=== PATIENT | male | born 1970 | race Caucasian/White ===

== ENCOUNTER 2022-07-01 08:44 | Emergency (ER) | payer OTHER, SELFPAY ==
[2022-07-01 08:51] VITALS: BP 125/75; PULSE 69; RESP 14; TEMP 36.6; O2SAT 98
--- NOTE | 2022-07-01 09:09 | ED.URI ---
HPI - URI/Sore Throat General Chief Complaint: Upper Respiratory Infection Stated Complaint: Sore Throat Time Seen by Provider: 07/01/22 09:09 History of Present Illness HPI Narrative: Patient presents with cough nasal congestion runny nose and sore throat for the past 3 days. No shortness of breath no chest pain no trouble swallowing no drooling. Related Data Home Medications Medication Instructions Recorded Confirmed hydrocodone 10 mg-acetaminophen 1 tablet PO Q6-8H PRN Pain 07/01/22 07/01/22 325 mg tablet pregabalin 100 mg capsule 100 mg PO QHS 07/01/22 07/01/22 Allergies Allergy/AdvReac Type Severity Reaction Status Date / Time meperidine Allergy Unknown Itching Verified 07/01/22 09:08 Review of Systems Review of Systems: CONSTITUTIONAL: Denies chills, or sweats. Reports fever and generalized body aches EYES: Denies visual changes, redness, or discharge. ENT: Denies otalgia. Reports nasal congestion runny nose and sore throat CARDIOVASCULAR: Denies chest pain, palpitations, or edema. RESPIRATORY: Denies dyspnea. Reports occasional cough GASTROINTESTINAL: Denies abdominal pain, nausea, vomiting, or diarrhea. GENITOURINARY: Denies dysuria or hematuria. SKIN: Denies rash or itching. MUSCULOSKELETAL: Denies back pain, joint pain, or myalgia. Reports generalized body aches NEUROLOGIC: Denies headache, numbness, or weakness. PSYCHIATRIC: Denies anxiety or depression. PMFSH Comments At time of signature, agree with nursing past medical, surgical, social and family history. There is no relevant family history pertinent to the presenting complaint Exam Narrative: The patient is a well-developed, well-nourished in no acute distress. SKIN: Skin is warm and dry without erythema, swelling or exudate. There is good turgor. No tenting. HEAD: Atraumatic. Normocephalic. No temporal or scalp tenderness. EYES: Moist and bright. Sclera and conjunctivae normal. No discharge. PERRLA. Extraocular motions intact. Gross visual acuity intact. EARS: Pinna is normal shape and contour. Clear external auditory canals. TM pearly cota with good cone of light, no erythema or suppuration. Bilateral cerumen noted no gross hearing deficit. NOSE: pink, moist mucosa with good air movement. Clear rhinorrhea without nasal flaring. Septum midline. Mouth: moist mucous membranes. THROAT; mild erythema noted to posterior oropharynx with moderate postnasal drainage. Without exudate or ulceration.. Uvula midline. Normal movement of soft palate. NECK: Supple and nontender with full range of motion without discomfort. No meningeal signs. LUNGS: Equal and bilateral breath sounds without wheezes, rales or rhonchi. CHEST: The chest wall is without retractions or use of accessory muscles. HEART: Has a regular rate and rhythm without murmur, gallops, click or rub. ABDOMEN: Soft, nontender with positive active bowel sounds. No rebound tenderness. EXTREMITIES: Without cyanosis, clubbing or edema. Equal 2+ distal pulses and 2 second capillary refill noted. NEUROLOGIC: alert, active, . The patient moves all extremities with normal muscle strength. Normal muscle tone is noted. Normal coordination is noted. NO focal neurological findings noted. Course Course Level of Care: Express Care Visit Vital Signs Vital signs: Vital Signs Temperature 36.6 C 07/01/22 08:51 Pulse Rate 69 07/01/22 08:51 Respiratory Rate 14 07/01/22 08:51 Blood Pressure 125/75 07/01/22 08:51 Pulse Oximetry 98 07/01/22 08:51 Oxygen Delivery Room Air 07/01/22 08:51 Temperature 36.6 C 07/01/22 08:51 Pulse Rate 69 07/01/22 08:51 Respiratory Rate 14 07/01/22 08:51 Blood Pressure 125/75 07/01/22 08:51 Pulse Oximetry 98 07/01/22 08:51 Oxygen Delivery Room Air 07/01/22 08:51 MDM - URI/Sore Throat Differential Diagnosis Differential diagnosis: Likely upper respiratory infection, croup, otitis media, sinusitis, viral infection, bronchitis, influenza a
== END 2022-07-01 09:20 | disposition home or self-care (01) ==
PROVIDERS: Emergency Provider Nurse Practitioner Family
DX: J06.9 Acute upper respiratory infection, unspecified (principal); J02.9 Acute pharyngitis, unspecified; B34.9 Viral infection, unspecified
CPT/HCPCS: 87081; 87880; 99213; G0463

== ENCOUNTER 2024-08-14 05:23 | Outpatient (CLI) | payer OTHER, SELFPAY ==
--- NOTE | 2024-08-13 18:12 | PC.NURSE ---
Pre Radiology instructions Report to the outpatient [facility] on date _[id number]____ at time _10:30am for procedure Time: __12:00pm__ YOU MAY BE MONITORED AT HOSPITAL FOR UP TO 4 HOURS AFTER YOUR PROCEDURE. A visitor will be allowed to accompany the patient into the hospital. You and your visitor will be asked to self-screen and do not enter if you have any COVID symptoms. A mask is OPTIONAL within the hospital. Patients are to have no food or drink 6 hours prior to procedure time Driving will be restricted after the procedure, you must have a person to drive you home. Labs will be drawn in preop area and once reviewed, you will be taken to radiology area for procedure. When the procedure is completed, you will be taken to outpatient where you will be monitored for several hours. You may have one visitor in this area. Medications to discontinue per physician: N/A_ Please leave all valuables, including medications, at home the day of procedure. The hospital will not accept responsibility for valuables. Wear comfortable, loose fitting clothing.? Follow any additional instructions given to you from ordering provider. Telephone instructions given to __Kenrick (patient) and asked if any additional questions and then verbalized understanding. Patient advised to call scheduling provider office or registration scheduling [phone] if any additional questions.
[2024-08-13 18:20] VITALS: BMI 35.3
--- NOTE | ~2024-08-14 | CT_ITS ---
EXAMINATION: CT thoracic lumbar w con DATE: 08/14/2024 13:48 INDICATION: Syringomyelia. TECHNIQUE: 1. Informed consent was obtained from the patient. Risks and benefits including bleeding, infection, spinal headache, allergic reaction and nerve root injury were discussed with the patient. The patie nt agreed to proceed. Time out procedure was performed. An entry site was chosen at the L4-L5 level . A right paracentral approach was used. Standard sterile prep was done with Betadine. Entry site was infiltrated with 5 cc 1% lidocaine. A 5 22G spinal needle was then inserted into the spinal can al. Intrathecal position was confirmed with spontaneous reflux of clear CSF. 8 mL Omnipaque 300 were then injected into the thecal sac with intrathecal administration confirmed with intermittent fluoros copy. Attempt was made to advance the contrast into the thoracic spine by tilting the table with the head down. This was performed this patient prone, the right lateral decubitus position and on the pat ient's back. There appear to be a complete myelographic block at the level of L3 with contrast unable to be advanced beyond this level. Frontal and lateral fluoroscopic images of the lumbar spine were then acquired. The patient was then transferred to CT scan for spiral CT of the thoracic and lumbar spine was performed with intrathecal contrast but without intravenous contrast. Automated exposure control and iterative reconstruction te chnique were employed. The dose-length product was 2304.79 mGy-cm. Following this patient was transfe rred to the recovery area for 2 hours of observation. There are no immediate complications. Coronal and sagittal reformatted images of the thoracic and lumbar spine CT were also reviewed. FINDINGS: Thoracic spine: Alignment is normal. Vertebral body heights are normal. There are lucent hemangiomas with typical thi ckened vertical trabecula at the T1 and T10 vertebral bodies. Minimal to mild disc height loss throug hout the thoracic spine with small anterior endplate osteophytes at a few levels the mid to lower tho racic spine. There is some ossification of the ligamentum flavum contributing to mild neural central canal stenosis at T2-T3, T3-T4 and T5-T6. Multilevel mild facet osteoarthritis throughout the thoraci c spine with moderate facet osteoarthritis bilaterally at C7-T1. There is minimal neural foraminal st enosis at a few thoracic levels. Distal tip of a an intrathecal pain pump located at the right-sided thecal sac at the level of T10. No evident intrathecal contrast the thoracic spine. Lumbar spine: Bone alignment is normal. Lumbar vertebral body heights are normal. Mild disc height loss at L3-L4. R emaining disc heights are normal. Partial L3 laminectomy with postoperative scarring in the overlying subcutaneous tissues. The intrathecal pain pump catheter extends into the lumbar spine 5 left parace ntral approach at the level of L2-L3. The cephalad most extent of the injected intrathecal contrast s een at the left side of the thecal sac at the level of L2-L3. Moderate bilateral sacroiliac osteoarth ritis. The following disc levels are specifically discussed: T12-L1: There is mild bilateral facet joint osteoarthritis. There is mild left neural foraminal steno sis. There is no central canal stenosis. L1-L2: There is mild bilateral facet joint osteoarthritis. There is no neural foraminal stenosis. The re is no central canal stenosis. L2-L3: Disc is mildly bulging. There is mild/moderate bilateral facet joint osteoarthritis. There is also some ossification along the mildly hypertrophied bilateral ligamentum flavum. There is minimal b ilateral neural foraminal stenosis. There is stenosis of the osseous central canal. There is however only a trace amount of intrathecal contrast outlining. The nerve roots at the left side of the centra l canal. L3-L4: Disc is mildly bulging. There is moderate bilateral facet joint osteoarthritis. There is mild bilateral neural foraminal stenosis. The intrathecal contrast surrounds the thickened appearing parav ertebral the cauda equina at the level of L4 where there is mild central canal stenosis. Intrathecal contrast appears displaced from the left side of the central canal beginning at the level of the disc space with relatively smooth margins to the contrast. This suggests either a disc bulge, mass or cys tic lesion within the thecal sac at this level results in moderate central canal stenosis at the infe rior aspect of L3 becoming progressively more severe more cephalad complete sonographic block of the contrast occurring at the level of L2-L3. L4-L5: The disc does not extend beyond the endplate margin. There is moderate bilateral facet joint o steoarthritis. There is mild bilateral neural foraminal stenosis. There is no central canal stenosis. The nerve roots at the level of L4. Deviated to the left posterior side of the thecal sac which sugg ests arachnoiditis. L5-S1: Disc is mildly bulging. There is moderate bilateral facet joint osteoarthritis. There is moder ate bilateral neural foraminal stenosis. There is no central canal stenosis. IMPRESSION: 1. Complete myelographic block of contrast at the level of L3 which appears to result from prominent disc extrusion, mass or cystic lesion centered in the right side of the thecal sac beginning at the l evel of L3-L4. The thecal sac in the more cephalad thoracic and upper lumbar spine remain unopacified with contrast. 2. Mild thoracic spondylosis. 3. Mild lumbar spondylosis with change of partial L3 laminectomy. Reviewed, dictated and finalized at location A. IMPRESSION: 1. Complete myelographic block of contrast at the level of L3 which appears to result from prominent disc extrusion, mass or cystic lesion centered in the rig ht side of the thecal sac beginning at the level of L3-L4. The thecal sac in th e more cephalad thoracic and upper lumbar spine remain unopacified with contras t. 2. Mild thoracic spondylosis. 3. Mild lumbar spondylosis with change of partial L3 laminectomy.
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
--- OUTSIDE RECORDS SUMMARY | 2024-08-14 05:28 | XMS_ITS ---
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 This section includes the names of all active insurance providers for the patient. Insurance Provider Type of Coverage Plan Name Start of Policy Coverage End of Policy Coverage Group Number Member ID Insurance Provider's Telephone Number Policy Calix's Name Patient's Relationship to Policy Calix [employer] TRICA RE DODA WNR Mar 31, 2021 DODA [id number] Rian SOSA PATIENT [facility] 2024 SELEC T RETIR ED Mar 19, 2024 SELECT RETIRED [id number] [phone] Rian SOSA PATIENT FOR LIFE TRICA RE FOR LIFE Apr 26, 2009 SPONSOR [id number] Rian SOSA PATIENT Selected Encounter This section includes the information on record at [place] for the Encounter. Date/Time Encounter Type Encounter Description Reason Provider Source Jul 10, 2024 11:00 AM MED NUTRITION INDIV SUBSEQ SPINAL CORD INJURY ICD-10-CM G82.22 Paraplegia, incomplete WEATHERHOLT,CA RRIE A IHE Encounter Template Text not used by [place] Assessments - Encounter Diagnoses This section includes the primary and secondary diagnoses documented for the Encounter. Date/Time Primary/Secondary Diagnosis Diagnosis Name Provider Source Jul 10, 2024 03:38 PM PRIMARY Paraplegia, incomplete WEATHERHOLT,CA RRIE A [facility] Jul 10, 2024 03:38 PM SECONDARY Dietary counseling and surveillance [facility] ENEDELIA A [facility] Plan of Treatment: Future Appointments (+ 6 months) and Future Tests (+/- 45 days) The Plan of Treatment section includes future care activities for the patient from all [place] treatmentfacilities. This section includes future appointments and future orders which are active, pending or scheduled. Future Appointments This section includes appointments that were scheduled to occur 6 months from the date of the Encounter, up to a maximum of 20 appointments. The data comes from all [place] treatment facilities. Appointment Date/Time Appointment Type Appointme nt Facility Name Jul 16, 2024 02:30 PM AMBULATORY - SURGERY [facility] July 25, 2024 10:30 AM AMBULATORY - NONE [facility] July 25, 2024 12:00 PM AMBULATORY - NONE [facility] July 29, 2024 03:30 PM AMBULATORY - MEDICINE [facility] August 14, 2024 10:30 AM AMBULATORY - NONE [facility] August 15, 2024 01:30 PM AMBULATORY - MEDICINE [facility] Aug 22, 2024 01:20 PM AMBULATORY - SURGERY [facility] Aug 22, 2024 02:30 PM AMBULATORY - MEDICINE [facility] Aug 27, 2024 12:00 PM AMBULATORY - NONE [facility] Sep 11, 2024 08:00 AM AMBULATORY - SURGERY [facility] Sep 23, 2024 07:30 AM AMBULATORY - REHAB MEDICIN [facility] Sep 25, 2024 12:00 PM AMBULATORY - NONE [facility] Oct 10, 2024 10:00 [facility] Active, Pending, and Scheduled Orders This section includes a listing of several types of active, pending, and scheduled orders, including clinic medications orders, diagnostic test orders, procedure orders and consult orders; where the start date of the order is 45 days before the date of the Encounter or 45 days after the date of theEncounter. The data comes from all [facility] facilities. Test Date/Time Test Type Test Details Facility Name Jul 10, 2024 12:00 AM Laboratory - Chemi stry Order OCCULT BLOOD FIT X1 SCREEN STOOL FECES [facility] Jul 10, 2024 12:00 AM Laboratory - Chemi stry Order TESTOSTERONE, FREE PANEL RED/NO-GEL SERUM [facility] Jul 10, 2024 12:00 AM Laboratory - Chemi stry Order HEPATITIS A IGG AB (STL) GOLD/RED SST SERUM [facility] Jul 10, 2024 12:00 AM Laboratory - Chemi stry Order MICRAL/CREAT PROFILE (STL) URINE YELLOW [facility] Jul 10, 2024 03:58 PM Consult Order EYE CLINIC OUTPT TERI Cons Gas Leak Inspector's [facility] Jul 10, 2024 03:58 PM Consult Order DERM OUTPA TIENT STL Cons Gas Leak Inspectors [facility] Jul 11, 2024 02:36 PM Consult Order DIABETES E DUCATION OUTPATIENT STL Cons Gas Leak Inspector's [facility] Jul 15, 2024 03:20 PM Consult Order OTHER U ROLOGY OUTPT STL Cons Gas Leak Inspectors [facility] Jul 16, 2024 08:59 AM Consult Order COMM[facility]ITY C[facility]CT [facility] Lab Results: +/- 30 days of the encounter This section includes the Chemistry and Hematology Lab Results on record with [facility] for the [facility]. Radiology Reports and Pathology Reports are provided separately, in subsequent sections. Lab Results This section contains the Chemistry/Hematology Results that were resulted 30 days before or 30 daysafter the date of the Encounter. Date/Time Source Result Type Result - Unit Interpretation Reference Range Specimen Type Comment Jul 10, 2024 09:55 AM [facility] HGA1C BLOOD Specimen Type: BLOOD No comment entered. Ordering Provider: SAGAR DOMINGUEZ Report Released Date/Time: May 27, 2024 10:27 AM Reporting Lab: [facility] [facility] [address] Performing Lab: [facility] [facility] [address] HGA1C 8.2 H 4.0-6.0 Jul 10, 2024 09:55 AM [facility] LIPID PANEL (STL) PLASMA Specimen Type: PLASM A Comment: No hemolysis noted. Ordering Provider: SAGAR DOMINGUEZ Report Released Date/Time: May 27, 2024 10:27 AM Reporting Lab: [facility] [facility] [address] Performing Lab: [facility] [facility] [address] CHOLESTEROL 168 mg/dL 0-200 TRIGLYCERIDE 104 mg/dL 0-150 CALCULATED LDL 115 mg/dL See Interp HDL(New) 32 mg/dL L > 40 Jul 10, 2024 09:55 AM [facility] B12 SERUM Specimen Type: SERUM No comment entered. Ordering Provider: SAGAR DOMINGUEZ Report Released Date/Time: May 27, 2024 10:27 AM Reporting Lab: [facility] [address] Performing Lab: [facility] [facility] [address] B12 336 pg/mL 213-816 Jul 10, 2024 09:55 AM [facility] FOLATE (STL-MA) SERUM Specimen Type: SERUM No comment entered. Ordering Provider: SAGAR DOMINGUEZ Report Released Date/Time: May 27, 2024 10:27 AM Reporting Lab: [facility] [facility] [address] Performing Lab: [facility] [facility] [address] FOLATE (STL-MA) 8.4 ng/mL 7-20 Jul 10, 2024 09:55 AM [facility] COMPREHENSIVE METABOLIC PANEL PLASMA Specimen Type: PLASMA Comment: No hemolysis noted. Ordering Provider: SAGAR DOMINGUEZ Report Released Date/Time: May 27, 2024 10:27 AM Reporting Lab: [facility] [address] Performing Lab: [facility] [facility] [address] CREATININE 0.61 mg/dL L 0.70-1.30 UREA NITROGEN 13.2 mg/dL 9.0-25.0 GLUCOSE 178 mg/dL H 72-99 SODIUM 137 meq/L 136-145 POTASSIUM 4.0 meq/L 3.5-5.0 CHLORIDE 105 meq/L 98-107 CARBON DIOXIDE 23 meq/L 22-31 CALCIUM 9.1 mg/dL 8.4-10.4 PROTEIN 7.3 g/dL 6.0-8.6 ALBUMIN 4.0 g/dL 3.4-5.0 TOTAL BILIRUBIN 0.7 mg/dL 0.2-1.2 ALKALINE PHOSPHATASE 93 U/L 40-150 AST/SGOT 41 U/L H 5-34 ALT/SGPT 72 U/L H 8-40 EGFR (CKD-EPI 2020) 114.85 >60 Jul 10, 2024 09:55 AM [facility] CBC BLOOD Specimen Type: BLOOD No comment entered. Ordering Provider: SAGAR DOMINGUEZ Report Released Date/Time: May 27, 2024 10:27 AM Reporting Lab: [facility] [address] Performing Lab: [facility] [facility] [address] WBC 6.0 10*3/uL 3.6-11.2 RBC 4.74 10*6/uL 4.10-5.70 HGB 13.8 g/dL 13.1-16.8 HCT 40.9 38.2-48.4 MCV 86.3 fL 80.0-100.0 MCH 29.1 pg 27.0-34.0 MCHC 33.7 g/dL 33.0-36.0 PLT 221 10*3/uL 150-400 MPV 11.0 fL 7.5-11.2 RDW 12.6 11.8-15.1 LYMPHOCYTES, AUTO % 26 MONOCYTES, AUTO % 7 NEUTROPHILS, AUTO % 64 EOSINOPHILS, AUTO % 2 BASOPHILS, AUTO % 1 LYMPHOCYTES, ABSOLUTE 1.56 10*3/uL 0.77- 4.50 MONOCYTES, ABSOLUTE 0.42 10*3/uL 0.19-0. 80 NEUTROPHILS, ABSOLUTE 3.88 10*3/uL 2.10- 8.00 EOSINOPHILS, ABSOLUTE 0.11 10*3/uL 0.00- 0.60 BASOPHILS, ABSOLUTE 0.04 10*3/uL 0.00-0. 20 Jul 10, 2024 09:55 AM [facility] VITAMIN D, 25-HYDROXY SERUM Specimen Type: SE RUM No comment entered. Ordering Provider: SAGAR DOMINGUEZ Report Released Date/Time: May 27, 2024 10:27 AM Reporting Lab: [facility] [address] Performing Lab: [facility] [facility] [address] VITAMIN D, 25-HYDROXY 6.9 ng/mL L 30-96 Jul 10, 2024 09:55 AM [facility] TSH W/ REFLEX FT4 (STL) PLASMA Specimen Type: PLASMA No comment entered. Ordering Provider: SAGAR DOMINGUEZ Report Released Date/Time: May 27, 2024 10:27 AM Reporting Lab: [facility] [address] Performing Lab: [facility] [facility] [address] TSH 0.908 u[IU]/mL 0.470-5.000 Jul 10, 2024 09:55 AM [facility] PREALBUMIN SERUM Specimen Type: SERUM No comment entered. Ordering Provider: SAGAR DOMINGUEZ Report Released Date/Time: May 27, 2024 10:27 AM Reporting Lab: [address] [address] Performing Lab: [address] [address] PREALBUMIN 18 mg/dL 16-42 Jul 10, 2024 09:55 AM [facility] HEP B CORE AB TOTAL. (STL) SERUM Specimen Typ e: SERUM No comment entered. Ordering Provider: SAGAR DOMINGUEZ Report Released Date/Time: Jul 08, 2024 10:10 AM Reporting Lab: [address] [address] Performing Lab: [address] [address] HEP B CORE AB TOTAL. (L) Nonreactive N onreactive Jul 10, 2024 09:55 AM [facility] HEP HB S Ag (AUSRI[place]) (STL) SERUM Specimen Typ e: SERUM No comment entered. Ordering Provider: SAGAR DOMINGUEZ Report Released Date/Time: Jul 08, 2024 10:10 AM Reporting Lab: [address] [address] Performing Lab: [address] [address] HEP HB S Ag ([place]) (STL) Nonreactive N onreactive Jul 10, 2024 09:55 AM [facility] CYSTATIN C EGFR PANELS ([facility]) PLASMA Spec imen Type: PLASMA Comment: Choice of which of the reported eGFR values to use depends on the clinical situation. For example, for patients with severe muscle wasting or reduced muscle mass, eGFR calculated using the 2012 cystatin equation may be preferred. Ordering Provider: SAGAR DOMINGUEZ Report Released Date/Time: May 27, 2024 10:27 AM Reporting Lab: [address] [address] Performing Lab: [address] [place] [address] CYSTATIN C 1.08 mg/L 0.57-1.80 CKD-EPI CYSTATIN C (2011) 72.2 >60 CKD-EPI CREAT-CYSC (2020) 91.5 >60 CREATININE (STL) 0.63 mg/dL L 0.7-1.3 Jul 10, 2024 09:55 AM [facility] HEPATITIS B SURFACE AB PNL SERUM Specimen Typ e: SERUM No comment entered. Ordering Provider: SAGAR DOMINGUEZ Report Released Date/Time: Jul 08, 2024 10:10 AM Reporting Lab: [address] [address] Performing Lab: [address] [address] HEP B Surface Ab-HBsAB (STL) Nonreactive m[IU]/m L Nonreactive Vital Signs: All taken on the encounter date This section contains inpatient and outpatient Vital Signs collected on the date of the Encounter. Date/Time Temperature Pulse Blood Pressure Respiratory Rate SP02 Pain Height Weight Body Mass Index Source Jul 10, 2024 08:00 AM 98.2 64 126/82 18 94 4 74 280 36 [facility] Social History: Smoking Status (Most current) and Tobacco Use (All prior to encounter date) This section includes the most current, and the historical, smoking and tobacco- related health factors from the [place] facility where the Encounter took place. Current Smoking Status This section includes the most current smoking, or tobacco-related health factor, from the [place] facility where the Encounter took place. Date/Time Current Smoking Status Comment Linda curry Dec 01, 2022 10:57 AM [place]-TOBACCO NEVER USED [facility] Tobacco Use History This section includes a history of the smoking, or tobacco-related health factors, that were collected on or before the date of the Encounter. The data comes from the [place] facility where the Encounter took place. Date/Time Smoking Status/Tobacco Use Comment F acmary Dec 20, 2021 08:00 AM [place]-TOBACCO NEVER USED [facility] Sep 09, 2020 08:00 AM [place]-TOBACCO NEVER US[place] [facility] Aug 19, 2019 01:09 PM [place]-TOBACCO NEVER USED [facility] Oct 02, 2017 12:14 PM [place]-TOBACCO NEVER USED [facility] Feb 24, 2016 07:41 AM LIFETIME NON-USER OF TOBACCO [facility] Jan 14, 2015 02:44 PM LIFETIME NON-USER OF TOBACCO [facility] May 17, 2006 10:12 AM LIFETIME NON-USER OF TOBACCO [facility] Oct 04, 2005 05:48 PM LIFETIME NON-TOBACCO USER [facility] Advance Directives: All historical and current Section Date Range: From patient's date of to the date document was created. This section includes ALL of a patient's completed or amended [place] Advance and Rescinded Directives. The entries below indicate that a directive exists for the patient, but an actual copy is not included with this document. The data comes from all [place] facilities. Date Advance Directives Provider Source July 25, 2024 ADVANCE DIRECTIVE NOA LYON [facility] Sep 28, 2005 ADVANCE DIRECTIVE CRUZITO OLMSTEAD Kenisha ANSON IS [facility] Radiology Reports: +/- 30 days of the encounter Radiology Reports For cases when an order for radiology services may have been completed prior to the date of the Encounter, the report list includes the Radiology Reports that were completed up to 30 days before dateof the Encounter. For cases when an order for radiology services may have been completed after the date of the Encounter, the report list also includes the Radiology Reports that were completed up to30 days after date of the Encounter. The data comes from all [place] treatment facilities. Date/Time Radiology Report Provider Source Jul 10, 2024 07:48 AM US LIMITED & RENAL COMP-P (SCI): ESTEBAN SOSA [id number] -1970 M Exm Date: JUL 10, 2024@07:48 Req Phys: SAGAR DOMINGUEZ Pat Loc: TERI-SCI ANNUAL EVAL [place] [employer] (Req'g L Img Loc: TERI-ULTRASOUND Service: Unknown [facility], [address] [place] [address] (Case [id number] COMPLETE) US ABDOMEN LTD, SINGLE ORG OR SHERRON(US Detailed) CPT:94942 Reason for Study: sci annual (Case [id number] COMPLETE) US RENAL COMPLETE (US Detailed) CPT:64271 Clinical History: Report Status: Verified Date Reported: JUL 10, 2024 Date Verified: JUL 10, 2024 [employer] E-Sig:/ES/ANGI MOHR Report: EXAMINATION: US ABDOMEN LTD, SINGLE ORG OR QUADRANT, US RENAL COMPLETE [id number] DATE: 07/10/2024 7:48 AM HISTORY: sci annual. COMPARISON: 12/19/2022 FINDINGS: The right kidney measures 12.2 x 4.7 x 5.0 cm and and left kidney 1.2 x 7.4 x 6.2 cm. Hydronephrosis:There is no hydronephrosis of either kidney. Renal mass:No cystic or solid renal mass is identified. No renal stone. Cortex: There is normal cortical echogenicity bilaterally. Cortical thickness is normal bilaterally. Bladder:The urinary bladder is grossly normal. Gallbladder:Normal. Impression: Normal renal ultrasound. Primary Interpreting Staff: ANGI MOHR, RADIOLOGIST ([employer]) /ANGI VELEZ [facility] Encounter Notes: All associated encounter notes This section contains the clinical notes associated to the Encounter. Date/Time Encounter Note(s) Provider Source Jul 10, 2024 08:44 AM SPINAL CORD INJURY ANNUAL EVALUATION NOTE: LOCAL TITLE: SCI ANNUAL EVAL NUTRITION STANDARD TITLE: SPINAL CORD INJURY ANNUAL EVALUATION NOTE DATE OF NOTE: JUL 10, 2024@08:44 ENTRY DATE: JUL 10, 2024@08:45:04 AUTHOR: ASHISH HULL COSIGNER: URGENCY: STATUS: COMPLETED SCI ANNUAL EVAL NUTRITION Has ADDENDA Modality of Care: Face to face NUTRITION REASSESSMENT Diagnosis: sci annual evaluation Time spent with Parker Ford: 30 min BMI: 35.3 Last appointment date: 2022 CLIENT HISTORY Patient Medical History: Neurogenic bladder (SNOMED CT 740757384) Neurogenic bowel (SNOMED CT 136965222) Paraplegia (SNOMED CT 79773612) Hemorrhoids * (ICD-9-CM 455.6) Hypogonadism (SNOMED CT 51889003) Diabetes Mellitus Type 2 (SCT 82439540) Vitamin D Deficiency (SCT 19047449) FOOD AND NUTRITION RELATED HISTORY 2 meals per day L: goes to out to eat daily, sirloin tips/green beans/baked potato/rolls/peanuts or Fried chicken/potato salad/bread/soup or Bahamian chicken/cheese/rice/burnett s, usually finishes the restaurant portion DL smaller meal, cheese burger and chips, pizza or Pashto snacks: bowl of nuts, or seeds or almonds and dark chocolate OUTPATIENT MEDICATIONS: noted KNOWLEDGE BELIEFS ATTITUDES and BEHAVIOR -is thinking about working on wt loss, has never made any major changes to try to lower his wt. Is open to reviewing. Reason for wanting to lose wt, to reduce pain and make it easier to get round. PHYSICAL ACTIVITY AND FUNCTION Nutrition related ADLs: - cooks sometimes, often they go out to eat Physical activity: -not reviewed today ANTHROPOMETRIC MEASUREMENTS Ht: 74 in Wt: 274 lb [124.28 kg] (12/19/2022) BMI 35.3 Wt today 280lb Weight History/Significant changes: Patient Weight History - Last Four 1. 274.0 lbs. / 124.3 kg. on DEC 19, 2022@08:00 2. 275.4 lbs. / 124.9 kg. on DEC 20, 2021@08:00 3. 271.6 lbs. / 123.2 kg. on NOV 03, 2020@12:24:58 4. 273.6 lbs. / 124.1 kg. on SEP 09, 2020@08:00 BIOCHEMICAL DATA/MEDICAL TESTS AND PROCEDURES HGA1C 6.5 H % 12/19/2022 10:11 HGA1C 6.3 H % 12/20/2021 09:55 TRIGLYCERIDE 148 mg/dL 12/19/2022 10:11 CHOLESTEROL 165 mg/dL 12/19/2022 10:11 HDL(New) 31 L mg/dL 12/19/2022 10:11 CALCULATED LDL 104 mg/dL 12/19/2022 10:11 NUTRITION FOCUSED PHYSICAL FINDINGS -only GI issues: constipation: tried fiber pills in the past, did not tolerate them, is interested in medication to assist -adequately nourished muscle/fat -skin: intact NUTRITION DIAGNOSIS: ACTIVE Overweight related to excessive energy intake(behavioral etiology) as evidenced by BMI 30.6. NUTRITION INTERVENTIONS: - will return next week for indirect calorimetry (fasted/no nicotine/caffeine) -MNT for wt loss -reviewed different methods that could be used to help lower wt -encouraged to think about his why why he wants to lower his wt NUTRITION MONITORING/EVALUATION: Self-reported inclusion of fresh vegetables as snacks during the day at next visit. -goal not achieved, d/c weight loss of 10% current in 6-12 months -goal not achieved, ongoing- Return for indirect calorimetry 7-10 days RTC: card provided /aissatou/ EMMANUEL Sherman RD Clinical Dietitian Signed: 07/10/2024 15:40 07/15/2024 ADDENDUM STATUS: COMPLETED Indirect calorimetry was scheduled for this am. was a no-show, RD called to offer to reschedule. Parker Ford would like to come in 07/31/24 at 7:30 /EMMANUEL Bergman RD Clinical Dietitian Signed: 07/15/2024 10:03 [facility]
--- OUTSIDE RECORDS SUMMARY | 2024-08-14 05:28 | XMS_ITS | Referral Summary ---
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 Gender Identity Not on file Sexual Orientation Not on file Last Filed Vital Signs Vital Sign Reading Time Taken Comments Blood Pressure 116/70 12/28/2020 8:22 AM CDT Pulse 75 12/28/2020 8:22 AM CDT Temperature 36 C (96.8 F) 12/28/2020 8:22 AM CDT Respiratory Rate 18 12/28/2020 8:22 AM CDT Oxygen Saturation 97% 12/28/2020 8:22 AM CDT Inhaled Oxygen Concentration - - Weight 113.4 kg (250 lb) 12/28/2020 8:22 AM CDT Height - - Body Mass Index - - Plan of Treatment Not on file Insurance [facility] [employer] Care Teams Dish Washer Relationship Specialty Start Date End Date Miscellaneous, Not In File PCP - General 09/04/16
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
--- OUTSIDE RECORDS SUMMARY | 2024-08-14 05:29 | XMS_ITS | Encounter Summary ---
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 drinks per year OTHER DRUGS: [x]NONE, [] Yes - TYPE/QTY: Family History: Father - alive age 87- melanoma, GI issues, macular degeneration Mother - age 77- Alzheimer's, Gallbladder CA Brothers - x1, healthy Sisters - x1, healthy Preventative Care: IM - IMMUNIZATIONS Influenza, Due Now ([place] interested) COVID-19, Due Now ([place] interested) Hepatitis B [place] unsure if he has received COVID-19 (MODERNA), Monovalent Booster 02/24/21 COVID-19 (MODERNA),Primary Series 04/30/20, 05/28/20 PNEUMOCOCCAL CONJUGATE PCV20 12/20/21 PNEUMOCOCCAL, UNSPECIFIED FORMULA 05/17/06 TDAP 08/16/17 ZOSTER RECOMBINANT 12/20/21, 12/19/22 Review of Systems: [X] = POS., [] = NEG Gen: []KEEN, []weight loss/gain, [x]fatigue, []anorexia, []fever, []chills, []night sweats, [x]sleep disturb. []dizziness ENT: []visual disturb., []hearing loss, []sinus prob., []sore throat Skin: []rash, []nonhealing lesions, []moles, []wounds Resp: []SOB, []cough, []hemoptysis CVS: []CP, []palpitations, [][place], []orthopnea, []PND GI: []Dysphagia, []heartburn, []abdominal pain, []N/V, []diarrhea []constipation, []melena, []hematochezia, []hematemesis : []Dysuria, []frequency, []urgency, []hematuria, []urine. Incontinence/leaking []nocturia MSK: []back pain, []neck pain, []decrease in strength []falls, []spasticity, []joint swelling, []joint pain NEURO []syncope, []dizziness, []changes in sensation VASC: []edema, []leg cramps Psych: []anxious, [x]depressed, []SI/HI Physical Examination: VITAL SIGNS: -BLOOD PRESSURE: 126/82 -PULSE RATE: 64 -RESPIRATORY RATE:18 -TEMPERATURE: 98.2 -WEIGHT:280 lbs -O2 SAT:94% -PAIN:4 -GEN: NAD, A&Ox4, well groomed, sitting in chair comfortably. -EYES: EOMI. Anicteric. right eye hordeolum, conjunctiva pink -HENT: Moist mucous membranes, No scleral icterus. No cervical lymphadenopathy or thyromegaly -LUNGS: Clear to auscultation bilaterally. No accessory muscle use. -CARDIOVASCULAR: Regular rate and rhythm. No murmur or gallops. No JVD. -ABDOMEN: BS + x4, soft, non-tender and non-distended. No palpable masses. -EXT: no edema, nontender, pedal pulses 2+ b/l. -SKIN: intact over ischium, sacrum, trochanters, scapulae and heels. -NEUROLOGIC: CN II-XII grossly intact, but not individually tested. -PSYCHIATRIC: Cooperative. Appropriate mood and affect. Assessment and Plan of Care: #Paraplegia -Stable, Encouraged to continue with activity as tolerated -Interdisciplinary evaluation by nursing, PT/OT/Psychology/Warper Fixer/S ocial Work; see separate evaluation documentation by each discipline -Continue physical activity as tolerated for maintenance of strength, endurance, and function. -SCI Annual Evaluation in 1 year. #Chronic Pain - Needs improvement, continue to follow with [facility] pain managment and with morphine pain pump/Lyrica. #Hypogonadism - Testosterone panel and CBC today #Erectile dysfunction - Stable, continue with Viagra. #Depression #PTSD - to visit with [facility] psychology today #Insomnia #Elevated Risk MARIANO - Sleep study ordered #Moles - dermatology consult placed family hx of melanoma #seborrheic dermatitis -Ketaconazole renewed #HLD - lipid panel today #DM - a1c and urine micral today, Cystatin C. Parthe completed. eye clinic recommended for annual screening. Deb consulted. #Fatigue #Vitamin D Deficiency -completed high dose supplement but did not follow up for recheck and to start maintenance dose #Right eye hordeolum - states feels like a sty but has been there for two months. He reports stabbing pain in eye. He tried OTC eye drops which were ineffective. Follow up:3 months The above plan of care was developed using evidenced base guidelines and using shared decision making with the . [place] agrees with above plan of care and will follow as scheduled and prn. On the date of the encounter, I spent : - [ ] 20-29 minutes - [ ] 30-39 minutes - [ ] 40-54 minutes - [ x ] Other: 90 minutes on some or all of the following: chart review, history, physical examination, treatment planning, education and counseling of the patient/family/nursing care partner, placing orders, communicating with other health care providers, and documentation in the electronic health record. Future Appointment + Recall: 07/25/24 10:30 am [facility] F-DENTAL DMD3 07/25/24 12:00 pm [facility] F-DENTAL HYG Clinical reminders: Medication Reconciliation Opt STL: I have reviewed the patient's medication list (including active outpatient prescriptions dispensed from this [facility] (local) and dispensed from another VA or [facility] facility (remote) as well as inpatient orders (local pending and active), local clinic medications, locally documented non-VA medications, and local prescriptions that have or been discontinued in the past 90 days.) with the patient and/or his/her care-ticket printer. Handwritten corrections, additions and/or deletions were made to the list, as appropriate. Corrected Outpatient Medication List was provided to the patient/caregiver. Hepatitis A Serology/Immunization: Hepatitis A Serology: Order Serology (anti-HAV IgG Only): See orders for actions taken Info Only: FIT Ordered: Remind Patient to Return: Reminded patient of the importance of returning the FOBT/FIT kit provided. Eye Care At-Risk Screen - L,N,PH,U: Patient identified to be at risk for the following eye condition(s): DIABETIC RETINOPATHY: Diabetes Diagnosis Information: Problem Diagnosis: 01/01/2023 68086703 (SNOMED CT) Type 2 diabetes mellitus Date Entered: 01/01/2023; Date Last Modified: 01/01/2023 Status: ACTIVE; Priority: UNDEFINED Prov. Narr. - Diabetes Mellitus Type 2 ([facility] [id number]) Action: Referral Ordered: Comprehensive Eye Exam Patient has active eye problems/symptoms. Schedule for a comprehensive eye exam ordered. Comment: gave [place] contact for scheduling eye clinic. Consult will be palced as well. PAVE Foot Check - L,N,P,PH,PO,PT,U: A complete foot check was completed at this encounter. VISUAL INSPECTION: Includes inspection for skin breaks, deformity, erythema, trauma, pallor on elevation, dependent rubor, nail deformities, extensive callus and pitting edema. Visual exam results: Normal PEDAL PULSES: Includes palpation of dorsalis and posterior tibial pulses and signs/symptoms of vascular compromise like pain, pallor, parasthesia or paralysis. Present (even if diminished) SENSORY CHECK: Includes 10 gram Monofilament ([place]-Jus) test of sensation. Intact (Greater than or equal to 80% of sites checked) Abnormal (Less than 80% of sites checked): Abnormal (decreased or absent sensation to monofilament): HIGH-RISK: HIGH RISK INFORMATION PROVIDED: 1. Advised patient that extra depth footwear with soft molded inserts and braces may be required. 2. Advised patient not to walk barefoot. 3. Explained the importance of daily foot checks. 4. Stressed the importance of daily foot hygiene, including bathing, complete drying and thorough inspection for changes. Patient declined referral to Podiatry. Will follow up with Primary Care as scheduled. /june Rachel DOMINGUEZ RN, ANP- ADULT NURSE PRACTITIONER Signed: 07/11/2024 08:09 DOMINGUEZ,SAGAR M [facility]
--- OUTSIDE RECORDS SUMMARY | 2024-08-14 05:29 | XMS_ITS | Clinical Summary ---
Author Organization [facility], formerly [facility] Address [address] [place] [address] Phone Care Team Providers Care Brick Molder Hand Name Role Phone Conversion, History Primary Care Provider Unavai lable Allergies Active Allergy Reactions Criticality Noted Date Comments Meperidine Itching Low 11/14/2008 Medications baclofen (LIORESAL) 20 mg Oral Tab Take 20 mg by mouth. pump Active diazepam (VALIUM) 10 mg Oral Tab Take 10 mg by mouth 2 times daily as needed for Anxiety. Active HYDROcodone-ac etaminophen (NORCO) 7.5-325 mg Tablet Take 1 Tab by mouth every 6 hours as needed for Pain, Moderate (For Pain Scale 4-6). 20 Tab 0 4 Active mupirocin (BACTROBAN) 2 % Ointment Apply to affected area daily. Apply to postoperative wound RIGHT abdomen DAILY during dressing changes. 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[employer] Gender Identity Not on file Sexual Orientation Not on file Occupation Industry Job Start Date Job End Date Not on file Not on file Not on file Not on file Last Filed Vital Signs Vital Sign Reading Time Taken Comments Blood Pressure 119/74 07/21/2020 7:27 AM CDT Pulse 67 07/21/2020 7:27 AM CDT Temperature 36.7 C (98.1 F) 07/21/2020 7:27 AM CDT Respiratory Rate 14 07/21/2020 7:27 AM CDT Oxygen Saturation 93% 07/21/2020 7:27 AM CDT Inhaled Oxygen Concentration - - Weight 120.6 kg (265 lb 14.4 oz) 07/20/2020 8:29 AM CDT Height 188 cm (6' 2) 07/20/2020 8:29 AM CDT Body Mass Index 34.14 07/20/2020 8:29 AM CDT Plan of Treatment Health Maintenance Due Date Last Done Comments DTAP/TDAP/TD VACCINES (1 - Tdap) 1989 HEPATITIS B VACCINES (1 of 3 - 19+ 3-dose series) 09/17 COLORECTAL SCREENING 10/15/2015 Colorectal Cancer Screening 10/15/2015 FIT-DNA Q 3 years 10/15/2015 FIT/FOBT Q 1 year 10/15/2015 Flex Sig/CT Colonography Q 5 years 10/15/2015 ZOSTER VACCINE (1 of 2) 2020 INFLUENZA VACCINE (#1) 2023 Medical Devices Implanted Type Area Core Analysis Operator Device Identifier Shelf Expiration Date Model / Serial / Lot Pump Synchromed Ii 20ml [id number] - [id number] Implanted:Qty: 1 on 07/20/2020 by Marty Avila DO at [facility] Other Right: Abdomen [employer]- NEUROLOGIC TECH 11/13/2021 8637-20 / [id number] / PIN [id number] Description:All Medtronic co mponents are processed on requisition, [id number]. Connector Pump Sutureless 8578 - Sna Implanted:Qty: 1 on 07/20/2020 by Marty Avila DO at [facility] Other Right: Abdomen [employer]- NEUROLOGIC TECH 12/24/2021 8578 / NA / [id number] Sutureless Pump Connector Revision Kit Implanted:Qty: 1 on 02/03/2014 by Marty Avila DO at [facility] Right: Abdomen [employer]- NEUROLOGIC TECH 01/09/2016 8578 / [id number] / Description:charged in suppl y list Explanted Type Area Core Analysis Operator Device Identifier Shelf Expiration Date Model / Serial / Lot Pump Synchromed Ii 20ml [id number] - [id number] Explanted:Qty: 1 on 02/03/2014 by Marty Avila DO at [facility] Other Right: Abdomen [employer]- NEUROLOGIC TECH 02/03/2014 8637-20 / [id number] / Pump Synchromed Ii 20ml [id number] - [id number] Implanted:Qty: 1 on 02/03/2014 by Marty Avila DO at [facility] Explanted:Qty: 1 on 07/20/2020 by Marty Avila DO at [facility] Other Right: Abdomen [employer]- NEUROLOGIC TECH 04/17/2014 8637-20 / [id number] / Insurance Member Subscriber Plan / Payer (Ef fective 2020-Present) Name:Kenrick Mireles Relation to Subscriber:Self Name:Kenrick Mireles Payer ID:Not on file Group ID:Not on file Type:[facility] Address: [place] [id number] ID CCN OPTUM Advance Directives For more information, please contact: [phone] * Full Code (Latest Code Status on File) Date Activated Date Inactivated Comments 07/20/2020 11:53 AM 07/21/2020 10:23 AM * Full Code Date Activated Date Inactivated Comments 02/03/2014 4:13 PM 02/04/2014 11:07 AM * Full Code Date Activated Date Inactivated Comments 02/03/2014 1:09 PM 02/03/2014 4:13 PM * Full Code Date Activated Date Inactivated Comments 11/16/2008 11:49 AM 11/17/2008 12:59 PM * Full Code Date Activated Date Inactivated Comments 11/14/2008 12:59 PM 11/16/2008 11:49 AM Care Teams Brick Molder Hand Relationship Specialty Start Date End Date Conversion, History PCP - General 02/15/07
--- OUTSIDE RECORDS SUMMARY | 2024-08-14 05:29 | XMS_ITS ---
Author Name [facility] Address [address] [place] [address] Care Team Providers Care Administrative Assistant Receptionist Name Role Phone SARAHVonda TRINY Primary Care Provider Carlitos lezama Insurance Providers: [...] RE DODA WNR Mar 31, 2021 DODA [id number] Rian SOSA PATIENT [facility] 2024 SELEC T RETIR ED Mar 19, 2024 [facility] [id number] [phone] Rian SOSA PATIENT [facility] RE FOR LIFE Apr 26, 2009 SPONSOR [id number] Rian SOSA PATIENT Selected Encounter This section includes the information on record at [place] for the Encounter. Date/Time Encounter Type Encounter Description Reason Pro vider Source Oct 12, 2023 09:45 AM Outpatient Encounter GENERAL INTERNAL MEDICINE IHE Encounter Template Text not used by [place] Advance Directives: All historical and current Section Date Range: From patient's date of to the date document was created. This section includes ALL of a patient's completed or amended VA Advance and Rescinded Directives. The entries below indicate that a directive exists for the patient, but an actual copy is not included with this document. The data comes from all [place] facilities. Date Advance Directives Provider Source July 25, 2024 ADVANCE DIRECTIVE NOA LYON [facility] Sep 28, 2005 ADVANCE DIRECTIVE CRUZITO OLMSTEAD [facility] Encounter Notes: All associated encounter notes This section contains the clinical notes associated to the Encounter. Date/Time Encounter Note(s) Provider Source Oct 12, 2023 09:45 AM NONVA NOTE: LOCAL TITLE: COMMUNITY CARE-CARE COORDINATION PLAN NOTE [address] TITLE: NONVA NOTE DATE OF NOTE: OCT 12, 2023@09:45 ENTRY DATE: OCT 12, 2023@09:45:28 AUTHOR: ARNALDO RUDD EXP COSIGNER: URGENCY: STATUS: COMPLETED Sheri from providers office called following up on yesterdays call re pump refill appt today and asked to speak with the nurse. Keyla advised me that she emailed the drs office a msg on 10/10 informing that the [place] can proceed with his 10/11 sched appt. Sheri was advised and will reach out the the Vet to inform. /aissatou/ ARNALDO RUDD ADVANCED ANDROID ARCHITECT Signed: 10/12/2023 09:49 ARNALDO RUDD [facility]
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
--- OUTSIDE RECORDS SUMMARY | 2024-08-14 05:30 | XMS_ITS | Encounter Summary ---
Author Organization [employer] Address 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; Paraplegia (CMS/HCC); Late Effects of Injuries due to Legal Intervention; Unspecified Place of Occurrence; No Proc/Contraindicatio n; Postlaminectomy Syndrome, Lumbar Region; Late Eff Injury-Undet Circ Social History Tobacco Use Types Packs/Day Years Used Date Smoking Tobacco: Never Assessed Sex and Gender Information Value Date Recorded Sex Assigned at Not on file 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 Gender Identity Not on file Sexual Orientation Not on file documented as of this encounter Plan of Treatment Not on file documented as of this encounter Visit Diagnoses Diagnosis Meningitis, unspecified(322.9)- Primary Meningitis, unspecified Other chronic pain Pain in limb Late effect of spinal cord injury Late effects of intracranial abscess or pyogenic infection Paraplegia (CMS/HCC) Paraplegia Late effects of injuries due to legal intervention Unspecified place of occurrence Surgical or other procedure not carried out because of contraindication Postlaminectomy syndrome, lumbar region Late effects of injury, undetermined whether accidentally or purposely inflicted documented in this encounter Care Teams Tumbler Operator Relationship Specialty Start Date End Date Conversion, History PCP - General 02/15/07 documented as of this encounter
--- OUTSIDE RECORDS SUMMARY | 2024-08-14 05:30 | XMS_ITS | Encounter Summary ---
Author Organization [employer] Address [address] [place] [address] Care Team Providers Care Edge Grinder Name Role Phone Conversion, History Primary Care Provider Carlitos lezama Encounter Details Date Type Department Care Team (Late st Contact Info) Description 11/13/2008 Outpatient Historical [facility], Authorized P NO ADDRESS ON FILE Janet Shook MD 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 Gender Identity Not on file Sexual Orientation Not on file documented as of this encounter Plan of Treatment Not on file documented as of this encounter Procedures Procedure Name Priority Date/Time Associated Diagnosis Comments COMPREHENSIVE METABOLIC PANEL Routine 11/14/2008 5:10 AM CDT URINALYSIS WITH REFLEX CULTURE Routine 11/14/2008 1:34 AM CDT URINALYSIS W/REFLEX MICROSCOPIC Routine 11/14/2008 1:34 AM CDT URINE CULTURE Routine 11/14/2008 1:[address] LUMBAR SPINE WO CONTRAST Routine 11/13/2008 5:06 PM CDT XR CHEST PA AND LATERAL 2 VW Routine 11/13/2008 4:13 PM CDT ED HOLD Stat 11/13/2008 3:36 PM CDT CBC WITH DIFFERENTIAL Stat 11/13/2008 3:36 PM CDT C-REACTIVE PROTEIN Stat 11/13/2008 3: 36 PM CDT COMPREHENSIVE METABOLIC PANEL Stat 11/13/2008 3:36 PM CDT documented in this encounter Results * (ABNORMAL) COMPREHENSIVE METABOLIC PANEL (11/14/2008 5:10 AM CDT) CREATININE 0.86 0.67 - 1.17 mg/dL [facility] SODIUM 140 135 - 145 mmol/L [facility] ALT 55(H) 0 - 41 U/L [facility] ALKALINE PHOSPHATASE 74 40 - 129 U/L [facility] BILIRUBIN TOTAL 1.0 0.2 - 1.0 mg/dL [facility] CO2 26 22 - 30 mmol/L [facility] TOTAL PROTEIN 6.8 6.3 - 8.6 g/dL [facility] POTASSIUM 3.9 3.5 - 4.9 mmol/L [facility] GLUCOSE 79 65 - 99 mg/dL [facility] AST 44(H) 12 - 38 U/L [facility] BUN 14 6 - 20 mg/dL [facility] CALCIUM 9.0 8.6 - 10.2 mg/dL [facility] CHLORIDE 103 96 - 108 mmol/L [facility] ALBUMIN 3.8 3.4 - 4.8 g/dL [facility] GFR, >60 >=60 mL/min/1.7 sq meter [facility] GFR >60 >=60 mL/min/1.7 sq meter [facility] Comment: Modification of Diet in Renal Disease (MDRD) study formula. Estimated GFR rate interpretative information for both Americans and non- Americans is available on the [facility] Intranet at: [email or web address] Select: Lab Policies and Procedures Select: Reference Ranges - GFR Blood specimen (specimen) 11/14/2008 5:10 AM CDT 11/14/2008 6:38 AM CDT Janet Shook MD CHEMISTRY ORDERABLES Edited Performing Organization Address [facility] Co de Phone Number [facility] CLIA# [id number] [address] [place] [address] * (ABNORMAL) URINE CULTURE (11/14/2008 1:34 AM CDT) FINAL REPORT >100,000 colonies/mL Staphylococcus NOT S. aureus(A) [facility] SUSCEPTIBILITY PERFORMED ON STAPHYLOCOCCUS SPECIES, NOT S AUREUS(A) [facility] 11/14/2008 1:34 AM CDT 11/14/2008 2:00 AM CDT Narrative Organism Antibiotic Method Susceptibility Staphylococcus species, not s aureus BETA LACTAMASE BELEN MCG/ML POSITIVE Staphylococcus species, not s aureus PENICILLIN G BELEN MCG/ML 0.25: Resistant Staphylococcus species, not s aureus OXACILLIN (Nafcillin) BELEN MCG/ML <=0.25: Susceptible Staphylococcus species, not s aureus GENTAMICIN BELEN MCG/ML <=0.5: Susceptible Staphylococcus species, not s aureus LEVOFLOXACIN BELEN MCG/ML 0.25: Susceptible Staphylococcus species, not s aureus VANCOMYCIN BELEN MCG/ML <=0.5: Susceptible Staphylococcus species, not s aureus NITROFURANTOIN BELEN MCG/ML <=16: Susceptible Janet Shook MD MICROBIOLOGY - GENERAL ORDERA BLES Final Result Performing Organization Address [facility]/State/ZIP Co de Phone Number [facility] CLIA# [id number] [address] [place] [address] * (ABNORMAL) URINALYSIS (11/14/2008 1:34 AM CDT) PH UA 7.5 5.0 - 8.0 [facility] KETONES UA 1+(A) Negative [facility] WBC UA >100(H) 0 - 3 /HPF [facility] CLARITY UA Slt. Cloudy(A) Clear [facility] PROTEIN UA Trace(A) Negative [facility] HYALINE CAST 1 0 - 2 /LPF [facility] BILIRUBIN UA Negative Negative [facility] LEUKOCYTE ESTERASE UA 3+(A) Negative [facility] RBC UA 1 0 - 3 /HPF [facility] SPECIFIC GRAVITY UA 1.014 1.001 - 1.035 [facility] BLOOD UA Negative Negative [facility] GLUCOSE UA Negative Negative [facility] COLOR UA Yellow [facility] NITRITE UA Negative Negative [facility] UROBILINOGEN UA <1 <=1 mg/dL [facility] BACTERIA UA 1+(A) None Seen /HPF [facility] 11/14/2008 1:34 AM CDT 11/14/2008 1:37 AM CDT us Janet Shook MD URINE ORDERABLES Final Result [facility] CLIA# [id number] [address] [place] [address] * URINALYSIS WITH REFLEX CULTURE (11/14/2008 1:34 AM CDT) URINE CULTURE ORDER Culture ordered [facility] Comment: Criteria for a reflex culture include one or more of the following: Abnormal nitrite, leukocyte esterase, WBCs or RBCs. Lack of qualifying criteria does not exclude the possiblity of a urinary tract infection. Dilute urine, drug interference, etc. may decrease the sensitivity of the criteria analytes. Urinary catheter specimen (specimen) 11/14/2008 1:34 AM CDT 11/14/2008 1:37 AM CDT us Janet Shook MD URINE ORDERABLES Final Result [facility] CLIA# [id number] [address] [place] [address] * CT LUMBAR SPINE WO CONTRAST (11/13/2008 5:06 PM CDT) Anatomical Region Laterality Modality Spine Other 11/13/2008 5:06 PM CDT Narrative 11/13/2008 10:30 PM CDT [facility] [address] [place], [place] [address] Admit Date: 11/13/2008 SOSAESTEBAN PETERS Sex: M Admit Prov: JANET SHOOK Date: 1970 Primary Care Prov: CMRN: [id number] Room: [address] [address] SSN: [id number] IMAGING SERVICES Ordering Prov: N/A Accession Number: [id number] Interpretation CT LUMBAR SPINE WITHOUT CONTRAST 11/13/2008 INDICATION: Chronic lumbar pain. TECHNIQUE: Multiple axial CT images were acquired. Coronal and sagittal reformats were performed. FINDINGS: The lumbar vertebral alignment is intact. No subluxation is seen. Mild disc space narrowing is present at L3-L4. Vertebral heights are maintained without evidence of acute compression fracture. Well-defined lucent defect in the superoposterior endplate of L4 has the appearance of a Schmorl's node deformity. A catheter is seen entering the thecal sac below the lamina of L2 and extending superiorly. No significant disc bulging is seen at L1- L2 or L2-L3. L3-L4: Suspected a Schmorl's node defect as described above is seen, which involves the posterior cortex in the left paracentral region. At the level of the lateral recess, there is some loss in fat signal seen around the traversing nerve roots. This could either be normal or due to postoperative scar tissue. A large discrete disc herniation or bulging is not seen in this region but evaluation with MRI would be more sensitive to a tiny disc herniation. Calcification of the ligamentum flavum on the right is noted. Definite stenosis is not seen. There is suggestion of postoperative laminotomy change. L4-L5: Disc configuration is normal. No significant stenosis is seen. L5-S1: Disc configuration is normal, and there is no stenosis or nerve compromise. IMPRESSION: 1. Intrathecal catheter as above. 2. Postoperative changes suspected at L3-L4 as above. If needed, MRI correlation would probably be helpful. . Dictated by: FABRIZIO ANTUNEZ 11/13/2008 21:55 Electronically signed by: FABRIZIO ANTUNEZ 11/13/2008 22:28 Transcribed: 11/13/2008 22:14 SJ Procedure Note Fabrizio Antunez - 11/13/[address] [address] Admit Date: 11/13/2008 ESTEBAN SOSA Sex: M Admit Prov: JANET SHOOK Date: 1970 Primary Care Prov: CMRN: [id number] Room: [address] [address] SSN: [id number] IMAGING SERVICES Ordering Prov: N/A Interpretation CT LUMBAR SPINE WITHOUT CONTRAST 11/13/2008 INDICATION: Chronic lumbar pain. TECHNIQUE: Multiple axial CT images were acquired. Coronal andsagittal reformats were performed. FINDINGS: The lumbar vertebral alignment is intact. No subluxation is seen.Mild disc space narrowing is present at L3-L4. Vertebral heights aremaintained without evidence of acute compression fracture. Well-defined lucentdefect in the superoposterior endplate of L4 has the appearance of aSchmorl's node deformity. A catheter is seen entering the thecal sac below thelamina of L2 and extending superiorly. No significant disc bulging is seenat L1- L2 or L2-L3. L3-L4: Suspected a Schmorl's node defect as described above is seen,which involves the posterior cortex in the left paracentral region. At thelevel of the lateral recess, there is some loss in fat signal seen aroundthe traversing nerve roots. This could either be normal or due topostoperative scar tissue. A large discrete disc herniation or bulging is not seenin this region but evaluation with MRI would be more sensitive to a tinydisc herniation. Calcification of the ligamentum flavum on the right isnoted. Definite stenosis is not seen. There is suggestion of postoperative laminotomy change. L4-L5: Disc configuration is normal. No significant stenosis isseen. L5-S1: Disc configuration is normal, and there is no stenosis ornerve compromise. IMPRESSION: 1. Intrathecal catheter as above. 2. Postoperative changes suspected at L3-L4 as above. If needed,MRI correlation would probably be helpful. . Dictated by: FABRIZIO ANTUNEZ 11/13/2008 21:55 Electronically signed by: FABRIZIO ANTUNEZ 11/13/2008 22:28 Transcribed: 11/13/2008 22:14 SJ us Serafin Jung MD CT ORDERABLES Final Result * XR CHEST PA AND LATERAL (11/13/2008 4:13 PM CDT) Anatomical Region Laterality Modality Chest Other 11/13/2008 4:13 PM CDT Narrative 11/13/2008 4:54 PM CDT [address] [address] Admit Date: 11/13/2008 ESTEBAN SOSA Sex: M Admit Prov: ER, AUTHORIZED P Date: 1970 Primary Care Prov: CMRN: [id number] [facility] SSN: [id number] IMAGING SERVICES Ordering Prov: N/A Accession Number: [id number] Interpretation TWO-VIEW CHEST, 11/13/2008 HISTORY: Back pain. FINDINGS: There are no comparison films. The lungs are fully inflated. The lung volumes are somewhat small. There are streaky perihilar opacities but no focal consolidation or effusion. The heart and mediastinum are within normal limits. IMPRESSION: Somewhat small lung volumes with streaky perihilar opacities. . Dictated by: DESIREE HAWK 11/13/2008 16:28 Electronically signed by: DESIREE HAWK 11/13/2008 16:52 Transcribed: 11/13/2008 16:34 SJ Procedure Note Desiree Hawk - 11/13/2008 [facility] [address] [place], [place] [address] Admit Date: 11/13/2008 ESTEBAN SOSA Sex: M Admit Prov: ER, AUTHORIZED P Date: 1970 Primary Care Prov: CMRN: [id number] Room: ER-A SSN: [id number] IMAGING SERVICES Ordering Prov: N/A Interpretation TWO-VIEW CHEST, 11/13/2008 HISTORY: Back pain. FINDINGS: There are no comparison films. The lungs are fullyinflated. The lung volumes are somewhat small. There are streaky perihilaropacities but no focal consolidation or effusion. The heart and mediastinum arewithin normal limits. IMPRESSION: Somewhat small lung volumes with streaky perihilar opacities. . Dictated by: DESIREE HAWK 11/13/2008 16:28 Electronically signed by: DESIREE HAWK 11/13/2008 16:52 Transcribed: 11/13/2008 16:34 SJ us Serafin Jung MD DIAGNOSTIC IMAGING ORD ERABLES Final Result * (ABNORMAL) CBC WITH DIFFERENTIAL (11/13/2008 3:36 PM CDT) HEMOGLOBIN 14.9 13.6 - 16.5 g/dL [facility] RDW 13.0 11.5 - 14.5 % [facility] WBC 7.6 4.0 - 9.8 K/uL [facility] MCH 30.1 27.2 - 32.6 pg [facility] MPV 10.9 9.3 - 12.4 fL [facility] HEMATOCRIT 43.6 40.0 - 48.0 % [facility] RDW-STDEV 41.2 37.1 - 48.7 fL [facility] RBC 4.95 4.50 - 5.40 M/uL [facility] MCHC 34.2 31.5 - 35.5 % [facility] MCV 88.1 82.0 - 99.0 fL [facility] PLATELETS 203 140 - 350 K/uL [facility] EOSINOPHILS 1 0 - 7 % [facility] EOSINOPHIL ABSOLUTE 0.10 0.00 - 0.70 K/uL [facility] LYMPHOCYTES 20 16 - 45 % [facility] LYMPHOCYTE ABSOLUTE 1.49 0.70 - 4.50 K/uL [facility] BASOPHILS 0 0 - 2 % [facility] BASOPHILS ABSOLUTE 0.03 0.00 - 0.20 K/uL [facility] MONOCYTES 8 3 - 13 % [facility] MONOCYTE ABSOLUTE 0.59 0.10 - 1.30 K/uL [facility] NEUTROPHILS 71(H) 45 - 70 % [facility] NEUTROPHIL ABSOLUTE 5.42 1.90 - 7.00 K/uL [facility] Blood specimen (specimen) 11/13/2008 3:36 PM CDT 11/13/2008 4:22 PM CDT us Serafin Jung MD HEMATOLOGY ORDERABLES Edited [facility] CLIA# [id number] [address] [place], [place] [address] * (ABNORMAL) C-REACTIVE PROTEIN (11/13/2008 3:36 PM CDT) Pathologist [facility] CRP 1.4(H) 0.0 - 0.8 mg/dL [facility] Blood specimen (specimen) 11/13/2008 3:36 PM CDT 11/13/2008 4:20 PM CDT Serafin Jung MD CHEMISTRY ORDERABLES F inal Result [facility] CLIA# [id number] [address] [place] [address] * (ABNORMAL) COMPREHENSIVE METABOLIC PANEL (11/13/2008 3:36 PM CDT) [facility] SODIUM 142 135 - 145 mmol/L [facility] ALT 72(H) 0 - 41 U/L [facility] ALKALINE PHOSPHATASE 84 40 - 129 U/L [facility] BILIRUBIN TOTAL 0.9 0.2 - 1.0 mg/dL [facility] CO2 23 22 - 30 mmol/L [facility] TOTAL PROTEIN 7.6 6.3 - 8.6 g/dL [facility] POTASSIUM 4.1 3.5 - 4.9 mmol/L [facility] GLUCOSE 108(H) 65 - 99 mg/dL [facility] AST 63(H) 12 - 38 U/L [facility] BUN 16 6 - 20 mg/dL [facility] CALCIUM 9.7 8.6 - 10.2 mg/dL [facility] CHLORIDE 105 96 - 108 mmol/L [facility] ALBUMIN 4.2 3.4 - 4.8 g/dL [facility] CREATININE 0.93 0.67 - 1.17 mg/dL [facility] GFR, >60 >=60 mL/min/1. 7 sq meter [facility] GFR >60 >=60 mL/min/1. 7 sq meter [facility] Comment: Modification of Diet in Renal Disease (MDRD) study formula. Estimated GFR rate interpretative information for both Americans and non- Americans is available on the [facility] Intranet at: [email or web address] Select: Lab Policies and Procedures Select: Reference Ranges - GFR Blood specimen (specimen) 11/13/2008 3:36 PM CDT 11/13/2008 4:20 PM CDT us Serafin Jung MD CHEMISTRY ORDERABLES E dited Performing Organization Address [facility] Co de Phone Number [facility] CLIA# [id number] [address] [place] [address] * ED HOLD (11/13/2008 3:36 PM CDT) SPECIMEN HOLD, BLOOD 7 days [facility] Blood specimen (specimen) 11/13/2008 3:36 PM CDT 11/13/2008 3:45 PM CDT us Authorized P Er CHEMISTRY ORDERABLES Final Resul t Performing Organization Address [facility] Co de Phone Number [facility] CLIA# [id number] [address] [place] [address] documented in this encounter Visit Diagnoses Diagnosis Backache, unspecified documented in this encounter Care Teams Edge Grinder Relationship Specialty Start Date End Date Conversion, History PCP - General 02/15/07 documented as of this encounter
--- OUTSIDE RECORDS SUMMARY | 2024-08-14 05:30 | XMS_ITS | Encounter Summary ---
Author Name [facility] Organization [facility] [place] Address [address] [place] [address] Care Team Providers Care Wastewater Technician Name Role Phone SARAHTRINY Ferrari Primary Care Provider Carlitos lezama Insurance [...] RE DODA WNR Mar 31, 2021 DODA [id number] Rian SOSA PATIENT [facility] 2024 SELEC T RETIR ED Mar 19, 2024 SELECT RETIRED [id number] [phone] Rian SOSA PATIENT FOR LIFE [facility] FOR LIFE Apr 26, 2009 SPONSOR [id number] Rian SOSA PATIENT Selected Encounter This section includes the information on record at [facility] for the Encounter. Date/Time Encounter Type Encounter Description Reason Provider Source Apr 25, 2024 09:52 AM Outpatient Encounter COMMUNITY CARE CONSULT NAN KELLEY Kalen Encounter Template Text not used by [place] Plan of Treatment: Future Appointments (+ 6 months) and Future Tests (+/- 45 days) The Plan of Treatment section includes future care activities for the patient from all [facility] treatmentfacilities. This section includes future appointments and future orders which are active, pending or scheduled. Future Appointments This section includes appointments that were scheduled to occur 6 months from the date of the Encounter, up to a maximum of 20 appointments. The data comes from all [facility] treatment facilities. Appointment Date/Time Appointment Type Appointme nt Facility Name Jun 27, 2024 03:00 PM AMBULATORY - MEDICINE [facility] Jun 30, 2024 09:00 AM AMBULATORY - REHAB MEDICIN E [facility] Jul 10, 2024 08:00 AM AMBULATORY - REHAB MEDICIN E [facility] Jul 10, 2024 08:30 AM AMBULATORY - NONE [facility] Jul 10, 2024 09:00 AM AMBULATORY - REHAB MEDICIN E [facility] Jul 10, 2024 09:30 AM AMBULATORY - REHAB MEDICIN E [facility] Jul 10, 2024 10:30 AM AMBULATORY - REHAB MEDICIN E [facility] Jul 10, 2024 11:00 AM AMBULATORY - REHAB MEDICIN E [facility] Jul 10, 2024 11:30 AM AMBULATORY - REHAB MEDICIN E [facility] Jul 10, 2024 12:30 PM AMBULATORY - REHAB MEDICIN E [facility] Jul 10, 2024 01:30 PM AMBULATORY - REHAB MEDICIN E [facility] Jul 16, 2024 02:30 PM AMBULATORY - SURGERY [facility] July 25, 2024 10:30 AM AMBULATORY - NONE [facility] July 25, 2024 12:00 PM AMBULATORY - NONE [facility] July 29, 2024 03:30 PM AMBULATORY - MEDICINE [facility] August 14, 2024 10:30 AM AMBULATORY - NONE [facility] August 15, 2024 01:30 PM AMBULATORY - MEDICINE [facility] Aug 22, 2024 01:20 PM AMBULATORY - SURGERY [facility] Aug 22, 2024 02:30 PM AMBULATORY - MEDICINE [facility] Aug 27, 2024 12:00 PM AMBULATORY - NONE [facility] Advance Directives: All historical and current Section Date Range: From patient's date of to the date document was created. This section includes ALL of a patient's completed or amended [place] Advance and Rescinded Directives. The entries below indicate that a directive exists for the patient, but an actual copy is not included with this document. The data comes from all [place] facilities. Date Advance Directives Provider Source July 25, 2024 ADVANCE DIRECTIVE NOA LYON [facility] Sep 28, 2005 ADVANCE DIRECTIVE CRUZITO OLMSTEAD [facility] Encounter Notes: All associated encounter notes This section contains the clinical notes associated to the Encounter. Date/Time Encounter Note(s) Provider Source Apr 25, 2024 09:52 AM NONVA NOTE: LOCAL TITLE: COMMUNITY CARE-CARE COORDINATION PLAN NOTE 6[address] STANDARD TITLE: NONVA NOTE DATE OF NOTE: APR 25, 2024@09:52 ENTRY DATE: APR 25, 2024@09:52:50 AUTHOR: NAN KELLEY COSIGNER: URGENCY: STATUS: COMPLETED COMMUNITY CARE-CARE COORDINATION PLAN NOTE [address] Has ADDENDA Community Care Consult: Pain Management Consult No: [id number] [facility] Referral #: Community Provider or Hospital Information Community Provider Information Provider Name: Dr. Marty Avila Provider Address: [address] [place] [address] City: [place] State: [place] [address] Provider Provider Provider Email: Chief Complaint: [place] has neuralgia and neuritis with intrathecal pain management system requiring refill and management every three months. Patient Admitted? No Level of Care Coordination Moderate Care Coordination was determined from: Chart Review Facility Community Care Office Contact Care Coordination Point of Contact: Nan Kelley RN Services: Basic Care Coordination Services Monitoring and coordination of Rehab/PT Services Direct communication to referring provider Care management, if appropriate Plan: Consult pending processing/upload. A [facility] sent to to inform of approval and inquire about preference for CT (if he would like it completed at [place] or in the community). Will follow for coordination assitance/plan of care/additional needs 's next refill will be in June 2024. /aissatou/ NAN KELLEY REGISTERED NURSE Signed: 04/25/2024 10:01 07/31/2024 ADDENDUM STATUS: COMPLETED Care Coordination Follow Up Level of Care Coordination Moderate Care Coordination was determined from: Chart Review Services: Basic Care Coordination Services Monitoring and coordination of Rehab/PT Services Direct communication to referring provider Care management, if appropriate Plan: [place] returned for a followup visit and pump refill. uses a intrathecal morphine via implanted Medtronic synchroMed pump. CONTACT [place] contacted on July to discuss pain evaluation. was contacted via [facility] and asked if he has any questions, concerns or and add't needs that [facility] can assist with. Awaiting response.CC staff will f/u quarterly as needed with and throughout [facility]. Action Needed? No /es/ MICHELLE BIGGS RN REGISTERED NURSE Signed: 07/31/2024 14:57 NAN KELLEY [facility]
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
--- OUTSIDE RECORDS SUMMARY | 2024-08-14 05:30 | XMS_ITS | Encounter Summary ---
Author Name [facility] [facility] [place] Address [address] [place] [address] Care Team Providers Care Molten Iron Pourer Name Role Phone TRINY HERNANDEZ Primary Care [...] RE DODA WNR Mar 31, 2021 DODA [id number] Rian SOSA PATIENT [facility] 2024 SELEC T RETIR ED Mar 19, 2024 [facility] [id number] [phone] Rian SOSA PATIENT FOR LIFE TRICA RE FOR LIFE Apr 26, 2009 SPONSOR [id number] IANRian EDUAR PATIENT Selected Encounter This section includes the information on record at [place] for the Encounter. 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 Date/Time Primary/Secondary Diagnosis Diagnosis Name Provider Source Jul 10, 2024 10:09 AM PRIMARY Paraplegia, incomplete GIA,KENNEDY [facility] Jul 10, 2024 10:09 AM SECONDARY Encounter for immunization ARLENE THORNTON [facility] Plan of Treatment: Future Appointments (+ 6 months) and Future Tests (+/- 45 days) The Plan of Treatment section includes future care activities for the patient from all [place] treatmentfacilities. This section includes future appointments and future orders which are active, pending or scheduled. Future Appointments This section includes appointments that were scheduled to occur 6 months from the date of the Encounter, up to a maximum of 20 appointments. The data comes from all [place] treatment facilities. Appointment Date/Time Appointment Type Appointme nt Facility Name Jul 16, 2024 02:30 PM AMBULATORY - SURGERY [facility] July 25, 2024 10:30 AM AMBULATORY - NONE [facility] July 25, 2024 12:00 PM AMBULATORY - NONE [facility] July 29, 2024 03:30 PM AMBULATORY - MEDICINE [facility] August 14, 2024 10:30 AM AMBULATORY - NONE [facility] August 15, 2024 01:30 PM AMBULATORY - MEDICINE [facility] Aug 22, 2024 01:20 PM AMBULATORY - SURGERY [facility] Aug 22, 2024 02:30 PM AMBULATORY - MEDICINE [facility] Aug 27, 2024 12:00 PM AMBULATORY - NONE [facility] Sep 11, 2024 08:00 AM AMBULATORY - SURGERY [facility] Sep 23, 2024 07:30 AM AMBULATORY - REHAB MEDICIN E [facility] Sep 25, 2024 12:00 PM AMBULATORY - NONE [facility] Oct 10, 2024 10:00 AM [facility] Active, Pending, and Scheduled Orders This section includes a listing of several types of active, pending, and scheduled orders, including clinic medications orders, diagnostic test orders, procedure orders and consult orders; where the start date of the order is 45 days before the date of the Encounter or 45 days after the date of theEncounter. The data comes from all [facility] facilities. Test Date/Time Test Type Test Details Facility Name Jul 10, 2024 12:00 AM Laboratory - Chemi stry Order MICRAL/CREAT PROFILE (STL) URINE YELLOW [facility] Jul 10, 2024 12:00 AM Laboratory - Chemi stry Order OCCULT BLOOD FIT X1 SCREEN STOOL FECES [facility] Jul 10, 2024 12:00 AM Laboratory - Chemi stry Order HEPATITIS A IGG AB (STL) GOLD/RED SST SERUM [facility] Jul 10, 2024 12:00 AM Laboratory - Chemi stry Order TESTOSTERONE, FREE PANEL RED/NO-GEL SERUM [facility] Jul 10, 2024 03:58 PM Consult Order EYE CLINIC OUTPT TERI [facility] Jul 10, 2024 03:58 PM Consult Order DERM OUTPA TIENT STL [facility] Jul 11, 2024 02:36 PM Consult Order DIABETES E DUCATION OUTPATIENT STL [facility] Jul 15, 2024 03:20 PM Consult Order OTHER U ROLOGY OUTPT STL [facility] Jul 16, 2024 08:59 AM Consult Order COMMUNITY CARE-CT ST[facility] Lab Results: +/- 30 days of [...] Type Comment Jul 10, 2024 09:[address] [facility] FOLATE (STL-MA) SERUM Specimen Type: SERUM No comment entered. Ordering Provider: SAGAR DOMINGUEZ Report Released Date/Time: May 27, 2024 10:27 AM Reporting Lab: [facility] [address] Performing Lab: [facility] [address] FOLATE ([facility]) 8.4 ng/mL 7-20 Jul 10, 2024 09:55 AM [facility] B12 SERUM Specimen Type: SERUM No comment entered. Ordering Provider: SAGAR DOMINGUEZ Report Released Date/Time: May 27, 2024 10:27 AM Reporting Lab: [facility] [address] Performing Lab: [facility] [address] B12 336 pg/mL 213-816 Jul 10, 2024 09:55 AM [facility] HGA1C BLOOD Specimen Type: BLOOD No comment entered. Ordering Provider: SAGAR DOMINGUEZ Report Released Date/Time: May 27, 2024 10:27 AM Reporting Lab: [facility] [address] Performing Lab: [facility] [address] HGA1C 8.2 H 4.0-6.0 Jul 10, 2024 09:55 AM [facility] LIPID PANEL (STL) PLASMA Specimen Type: PLASM A Comment: No hemolysis noted. Ordering Provider: SAGAR DOMINGUEZ Report Released Date/Time: May 27, 2024 10:27 AM Reporting Lab: [facility] [address] Performing Lab: [facility] [address] CHOLESTEROL 168 mg/dL 0-200 TRIGLYCERIDE 104 mg/dL 0-150 CALCULATED LDL 115 mg/dL See Interp HDL(New) 32 mg/dL L > 40 Jul 10, 2024 09:[address] [facility] VITAMIN D, 25-HYDROXY SERUM Specimen Type: SE RUM No comment entered. Ordering Provider: SAGAR DOMINGUEZ Report Released Date/Time: May 27, 2024 10:27 AM Reporting Lab: [facility] [address] Performing Lab: [facility] [address] VITAMIN D, 25-HYDROXY 6.9 ng/mL L 30-96 Jul 10, 2024 09:[address] [facility] TSH W/ REFLEX FT4 (STL) PLASMA Specimen Type: PLASMA No comment entered. Ordering Provider: SAGAR DOMINGUEZ Report Released Date/Time: May 27, 2024 10:27 AM Reporting Lab: [facility] [address] Performing Lab: [facility] [address] TSH 0.908 u[IU]/mL 0.470-5.000 Jul 10, 2024 09:[address] [facility] PREALBUMIN SERUM Specimen Type: SERUM No comment entered. Ordering Provider: SAGAR DOMINGUEZ Report Released Date/Time: May 27, 2024 10:27 AM Reporting Lab: [facility] [address] [facility] [address] Performing Lab: [facility] [address] [facility] [address] PREALBUMIN 18 mg/dL 16-42 Jul 10, 2024 09:55 AM [facility] COMPREHENSIVE METABOLIC PANEL PLASMA Specimen Type: PLASMA Comment: No hemolysis noted. Ordering Provider: SAGAR DOMINGUEZ Report Released Date/Time: May 27, 2024 10:27 AM Reporting Lab: [facility] [address] Performing Lab: [facility] [address] CREATININE 0.61 mg/dL L 0.70-1.30 UREA NITROGEN [...] 114.85 >60 Jul 10, 2024 09:55 AM [facility] CYSTATIN C EGFR PANELS (STL-PB-MA) PLASMA Spec imen Type: PLASMA Comment: Choice of which of the reported eGFR values to use depends on the clinical situation. For example, for patients with severe muscle wasting or reduced muscle mass, eGFR calculated using the 2011 cystatin equation may be preferred. Ordering Provider: SAGAR DOMINGUEZ Report Released Date/Time: May 27, 2024 10:27 AM Reporting Lab: [facility] [address] [place] [address] Performing Lab: [address] [address] CYSTATIN C 1.08 mg/L 0.57-1.80 CKD-EPI CYSTATIN C (2011) 72.2 >60 CKD-EPI CREAT-CYSC (2020) 91.5 >60 CREATININE (L) 0.63 mg/dL L 0.7-1.3 Jul 10, 2024 09:55 AM [facility] CBC BLOOD Specimen Type: BLOOD No comment entered. Ordering Provider: SAGAR DOMINGUEZ Report Released Date/Time: May 27, 2024 10:27 AM Reporting Lab: [facility] [address] Performing Lab: [facility] [address] WBC 6.0 10*3/uL 3.6-11.2 RBC 4.74 10*6/uL [...] 20 Jul 10, 2024 09:55 AM [facility] HEP B CORE AB TOTAL. (STL) SERUM Specimen Typ e: SERUM No comment entered. Ordering Provider: SAGAR DOMINGUEZ Report Released Date/Time: Jul 08, 2024 10:10 AM Reporting Lab: [facility] [address] [facility] [address] Performing Lab: [facility] [address] [facility] [address] HEP B CORE AB TOTAL. (STL) Nonreactive N onreactive Jul 10, 2024 09:55 AM [facility] HEP HB S Ag (AUSRI[place]) (STL) SERUM Specimen Typ e: SERUM No comment entered. Ordering Provider: SAGAR DOMINGUEZ Report Released Date/Time: Jul 08, 2024 10:10 AM Reporting Lab: [facility] [address] [facility] [address] Performing Lab: [facility] [address] [facility] [address] HEP HB S Ag ([place]) (STL) Nonreactive N onreactive Jul 10, 2024 09:55 AM [facility] HEPATITIS B SURFACE AB PNL SERUM Specimen Typ e: SERUM No comment entered. Ordering Provider: SAGAR DOMINGUEZ Report Released Date/Time: Jul 08, 2024 10:10 AM Reporting Lab: [facility] [address] [facility] [address] Performing Lab: [place] [address] [facility] [address] HEP B Surface Ab-HBsAB (STL) Nonreactive m[IU]/m L Nonreactive Vital Signs: All taken on the encounter date This section contains inpatient and outpatient Vital Signs collected on the date of the Encounter. Date/Time Temperature Pulse Blood Pressure Respiratory Rate SP02 Pain Height Weight Body Mass Index Source Jul 10, 2024 08:00 AM 98.2 64 126/82 18 94 4 74 [address] [facility] Immunizations: All administered on the encounter date This section contains immunizations associated to the Encounter. Immunization Series Date Issued Administered By Site Reaction Lot Number CVX Code Drug Stocking Inspector Comment(s) Source INFLUENZA, SPLIT VIRUS, TRIVALENT, PF Jul 10, 2024 BELEN THORNTON LEFT DELTO ID [id number] ANTOINEITHKLI OBDULIO [facility] Social History: Smoking Status (Most current) and Tobacco Use (All prior to encounter date) This section includes the most current, and the historical, smoking and tobacco- related health factors from the [place] facility where the Encounter took place. Current Smoking Status This section includes the most current smoking, or tobacco-related health factor, from the [place] facility where the Encounter took place. Date/Time Current Smoking Status Comment Linda curry Dec 01, 2022 10:57 AM [place]-TOBACCO NEVER USED [facility] Tobacco Use History This section includes a history of the smoking, or tobacco-related health factors, that were collected on or before the date of the Encounter. The data comes from the [place] facility where the Encounter took place. Date/Time Smoking Status/Tobacco Use Comment Dashawn peterson Dec 20, 2021 08:00 AM [place]-TOBACCO NEVER USED [facility] Sep 09, 2020 08:00 AM VA-TOBACCO NEVER USED [facility] Aug 19, 2019 01:09 PM VA-TOBACCO NEVER USED [facility] Oct 02, 2017 12:14 PM VA-TOBACCO NEVER USED [facility] Feb 24, 2016 07:41 AM LIFETIME NON-USER OF TOBACCO [facility] Jan 14, 2015 02:44 PM LIFETIME NON-USER OF TOBACCO [facility] May 17, 2006 10:12 AM LIFETIME NON-USER OF TOBACCO [facility] Oct 04, 2005 05:48 PM LIFETIME NON-TOBACCO USER [facility] Advance Directives: All historical and current Section Date Range: From patient's date of to the date document was created. This section includes ALL of a patient's completed or amended [place] Advance and Rescinded Directives. The entries below indicate that a directive exists for the patient, but an actual copy is not included with this document. The data comes from all [place] facilities. Date Advance Directives Provider Source July 25, 2024 ADVANCE DIRECTIVE NOA LYON [facility] Sep 28, 2005 ADVANCE DIRECTIVE CRUZITO OLMSTEAD [facility] Radiology Reports: +/- 30 days of [...] the Encounter. The data comes from all [place] treatment facilities. Date/Time Radiology Report Provider Source Jul 10, 2024 07:48 AM US LIMITED & RENAL COMP-P (SCI): ESTEBAN SOSA [id number] -1970 M Exm Date: JUL 10, 2024@07:48 Req Phys: ANGELICA,JUNE M Pat Loc: TERI-SCI ANNUAL EVAL CLINICAL APPEALS REVIEWER (Req'g L Img Loc: TERI-ULTRASOUND Service: Unknown [facility], [address] [place] [address] (Case [id number] COMPLETE) US ABDOMEN LTD, SINGLE ORG OR SHERRON(US Detailed) CPT:87890 Reason for Study: sci annual (Case [id number] COMPLETE) US RENAL COMPLETE (US Detailed) CPT:65240 Clinical History: Report Status: Verified Date Reported: JUL 10, 2024 Date Verified: JUL 10, 2024 Manager Policy E-Sig:/ES/ANGI MOHR Report: EXAMINATION: US ABDOMEN LTD, SINGLE ORG OR QUADRANT, US RENAL COMPLETE [id number] DATE: 07/10/2024 7:48 AM HISTORY: sci annual. [...] ultrasound. Primary Interpreting Staff: ANGI MOHR, RADIOLOGIST (Manager Policy) /ANGI VELEZ [facility] Encounter Notes: All associated encounter notes This section contains the clinical notes associated to the Encounter. Date/Time Encounter Note(s) Provider Source Jul 10, 2024 10:54 AM SPINAL CORD INJURY OUTPATIENT NOTE: LOCAL TITLE: SCI CLINIC VISIT ST STANDARD TITLE: SPINAL CORD INJURY OUTPATIENT NOTE DATE OF NOTE: JUL 10, 2024@10:54 ENTRY DATE: JUL 10, 2024@10:55:02 AUTHOR: RONI THORNTON COSIGNER: URGENCY: STATUS: COMPLETED Influenza Immunization - L,N,P,PH,U: Influenza, Trivalent, Preservative Free (Fluarix-Syringe) Administered: INFLUENZA, SPLIT VIRUS, TRIVALENT, PF Date Administered: Jul 10, 2024 09:00 Stocking Inspector: Devicescape Lot: [id number] Exp Date: Sep 15, 2024 [facility]: [id number] Admin Route/Site: INTRAMUSCULAR/LEFT DELTOID Dosage: 0.5mL Vaccine Information Statement(s): INFLUENZA(FLU) VACC(INACTIVATED OR RECOMBINANT)VIS Apr 18, 2024 ([place]ATVI[place]) Order By: Policy Administered By: Roni Thornton The Influenza Vaccine Information Statement (VIS) was reviewed with the patient/caregiver which lists the benefits and risks of the vaccine and the risks of not receiving the Influenza vaccine. The patient/caregiver denied any prior severe reaction to this vaccine or its components or a severe allergic reaction, such as anaphylaxis, to any vaccine or any injectable therapy. The patient/caregiver gave verbal consent to receive the vaccine. /aissatou/ RONI THORNTON Licensed Practical Nurse Signed: 07/10/2024 10:56 RONI THORNTON [facility] Jul 10, 2024 08:00 AM [facility]TE[facility]ATIVE [facility]ALTH NOTE: LOCAL TITLE: PERSONAL HEALTH INVENTORY NOTE STANDARD TITLE: [facility]TE[facility]ATIVE HEALTH NOTE DATE OF NOTE: JUL 10, 2024@08:00 ENTRY DATE: JUL 10, 2024@10:13:14 AUTHOR: KENNEDY NIELSENIGNER: URGENCY: STATUS: COMPLETED Personal Health Inventory Self-Reflection Scales (Patient rating from 1-5, with 1 being not so good and 5 being great.) --- Physical Well-Being: 's Response: 2 What made you choose this number? What does this number mean to you? What might a slightly higher number look like or feel like? What kinds of things would you be doing? Mental/Emotional Well-Being: Pequea's Response: 2 What made you choose this number? What does this number mean to you? What might a slightly higher number look like or feel like? What kinds of things would you be doing? Life: How is it to live your day-to-day life? Pequea's Response: 2 What made you choose this number? What does this number mean to you? What might a slightly higher number look like or feel like? What kinds of things would you be doing? Where Are You and Where You'd Like To Be (Patient rating from 1-5, with 1=low and 5=high that best represents where patient is and where patient wants to be.) --- Reflections --- /aissatou/ KENNEDY NIELSEN Licensed Practical Nurse Signed: 07/10/2024 10:13 KENNEDY NIELSEN [facility] Jul 10, 2024 08:00 AM SPINAL CORD INJURY OUTPATIENT NOTE: LOCAL TITLE: SCI CLINIC VISIT [facility] STANDARD TITLE: SPINAL CORD INJURY OUTPATIENT NOTE DATE OF NOTE: JUL 10, 2024@08:00 ENTRY DATE: JUL 10, 2024@10:03:20 AUTHOR: KENNEDY NIELSEN EXP COSIGNER: URGENCY: STATUS: COMPLETED SCI CLINIC NURSING NOTE REASON FOR VISIT INITIAL VISIT ( ) FOLLOW UP VISIT ( ) ANNUAL EVAL ( X ) OTHER: VITAL SIGNS T:98.2 P:64 R:18 BP:126/82 O2 Sat:94 WT:280 PAIN: YES:{ X } NO CURRENT PAIN:{ } PAIN SCALE # ( 4 ) LOCATION:LEFT LEG AND LOWER BACK DESCRIPTION: CONSTANT( X )INTERMITTENT( )SHARP( )DULL( )ACHING( ) BURNING( ) SHOOTING( ) CRAMPING( ) PIERCING( ) THROBBING( ) STINGING( ) SORENESS( ) TENDERNESS( ) TINGLING( ) PRESSURE( ) TIGHTNESS( ) HEAVINESS( ) STABBING( ) NUMBNESS( ) PINCHING( ) PAIN COMMENTS:VET HAS PAIN PUMP. ALERT & ORIENTED X 3. {X } X 2 { } X 1 ( ) MOTOR: MULTIPLE SCLEROSIS:{ } PARA: INCOMPLETE ( ) COMPLETE ( ) QUAD: INCOMPLETE ( ) COMPLETE ( ) COMMENTS:T-10 A-A SKIN: WNL { } PRESSURE SORE ( ) BURN ( ) SURGICAL INCISSION ( ) HEALED ( ) NOT HEALED( ) COMMENTS:PATCHES OF DRY, DISCOLORED ITCHY SKIN/ CHEST RASH. APPEARANCE: NEAT { X} APPROPRIATE { X} UNKEPT { } COMMENTS: RESPIRATORY: NORMAL RESPIRATION { X } CLEAR BREATH SOUNDS { } UNLABORED { X } LABORED { } COUGH { } COMMENTS: GASTROINTESTINAL: NORMAL BOWEL FUNCTION ( ) COLOSTOMY { } DIGITAL SLAEOMZXC3B {2XDAILY } SUPPOSITORY { } LAXATIVES { } ENEMA { } ABDOMEN SOFT/NON-TENDER { X } ABDOMEN DISTENDED { } ESTABLISHED BOWEL PROGRAM { X } LAST BM: COMMENTS: GENITOURINARY: VOIDS { } EXTERNAL CATHETER { } URINAL { ] INTERMITTENT CATHS.(X )- EVERY {3-4X'S A DAY } HOURS [place] { } SUPRAPUBIC CATHER { } DATE LAST CHANGED { } ILEO { } COMMENTS: NUTRITION: REGULAR DIET { X } OTHER { } DIABETIC { } INSULIN DEPENDENT { } NON-INSULIN DEPENDENT { } RECENT WEIGHT LOSS { } GAIN { } COMMENTS: MOBILITY: MANUAL W/C { } ELECTRIC W/C { ] SCOOTER { } GURNEY { } AMBULATES { X } WALKER { } CANE { } CRUTCHES { } OTHER { } COMMENTS: TOBACCO PRODUCTS: LIFETIME NON-USER: { X } CURRENT SMOKER: { } FORMER SMOKER-NOW QUIT: { } SMOKELESS TOBACCO{ } FORMER SMOKELESS TOBACCO-NOW QUIT{ } AMOUNT { } DURATION { } DATE STOPPED USING { } COMMENTS: ALCOHOL/DRUG USE: NO:{ } YES:{X } SUBSTANCE {BEER } AMOUNT { } DURATION { } DATE STOPPED USING { } COMMENTS: Sexual Orientation - CP,L,N,P,PH,PS,S,U: The patient thinks of their sexual orientation as: Straight or Heterosexual Alcohol Use Screen (AUDIT-C) - V: Alcohol Screen: SCREEN FOR ALCOHOL (AUDIT-C) An alcohol screening test (AUDIT-C) was negative (score=1). 1. How often did you have a drink containing alcohol in the past year? Consider a drink to be a 12 ounce can or bottle of regular beer, 8 ounces of malt liquor, a 5 ounce glass of table wine, or a 1.5 ounce shot of liquor (like scotch, gin, or vodka). Monthly or less 2. How many drinks containing alcohol did you have on a typical day when you were drinking in the past year? One or two drinks 3. How often did you have six or more drinks on one occasion in the past year? Never COVID-19 Immunization - L,N,P,PH,U: Referred to another clinic for immunization (desired vaccine unavailable at this location) Homelessness/Food Insecurity Screen - DI,L,N,P,PH,PS,S,U: In the past 2 months, have you been living in stable housing that you own, rent, or stay in as part of a household? Yes - Living in stable housing. Are you worried or concerned that in the next 2 months you may NOT have stable housing that you own, rent, or stay in as part of a household? No - Not worried about housing near future The [place]quea reports the following: Within the past 12 months, you worried whether your food would run out before you got money to buy more. Never true Within the past 12 months, the food you bought just didn't last and you didn't have money to get more. Never true SEEN BY INTER D TEAM, MARITO AND LABS COMPLETED. PLAN TO FOLLOW UP ORDERED BY PROVIDER. /aissatou/ KENNEDY NIELSEN Licensed Practical Nurse Signed: 07/10/2024 11:51 KENNEDY NIELSEN [facility]
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
--- OUTSIDE RECORDS SUMMARY | 2024-08-14 05:30 | XMS_ITS | Encounter Summary ---
Author Organization [facility] Address 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
--- OUTSIDE RECORDS SUMMARY | 2024-08-14 05:30 | XMS_ITS | Clinical Summary ---
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
--- OUTSIDE RECORDS SUMMARY | 2024-08-14 05:30 | XMS_ITS | Encounter Summary ---
Author Name [facility] Organization [facility] Address [address] [place] [address] Care Team Providers Care Security Coordinator Name Role Phone AURORAVERONICATRINY Ferrari Primary Care Provider Carlitos lezama Insurance [...] RE DODA WNR Mar 31, 2021 DODA [id number] Rian SOSA PATIENT [facility] 2024 SELEC T RETIR ED Mar 19, 2024 [facility] [id number] [phone] Rian SOSA PATIENT [facility]ICA RE FOR LIFE Apr 26, 2009 SPONSOR [id number] Rian SOSA PATIENT Selected Encounter This section includes the information on record at [place] for the Encounter. Date/Time Encounter Type Encounter Description Reason Pro vider Source IHE Encounter Template Text not used by [place] Advance Directives: All historical and current Section Date Range: From patient's date of to the date document was created. This section includes ALL of a patient's completed or amended [place] Advance and Rescinded Directives. The entries below indicate that a directive exists for the patient, but an actual copy is not included with this document. The data comes from all [place] facilities. Date Advance Directives Provider Source July 25, 2024 ADVANCE DIRECTIVE NOA LYON [facility] Sep 28, 2005 ADVANCE DIRECTIVE CRUZITO OLMSTEAD [facility]
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
--- OUTSIDE RECORDS SUMMARY | 2024-08-14 05:30 | XMS_ITS | Continuity of Care Document ---
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 LIVING (ADL) &COMPENSAT TRAIN,MEAL PREPARATION,SAFETY PROCS,AND INSTRUCT IN USE OF ASST TECHNOLOGY DEV/ADPT EQUIP) DIR ONE-ON-ONE CONT,EA 15 MINUTES 05/28/[address] [facility] PURE TONE AUDIOMETRY (THRESHOLD); AIR ONLY 10/02/[address] [facility] SCREENING TEST, PURE TONE, AIR ONLY 11/30/19 [facility] SCREENING TEST, PURE TONE, AIR ONLY 09/19/19 [facility] PHYSICAL PERFORMANCE TEST OR MEASUREMENT (EG, MUSCULOSKELETAL, FUNCTIONAL CAPACITY), WITH WRITTEN REPORT, EACH 15 MINUTES 09/18/19 [facility] PHYS/OTH QUALIFIED HEALTH RESOURCE MANAGER FORESTER QUALIFIED,EDUCATION,TRAIN ,LICENSURE/REGULATION (WHEN APPLICABLE) EDUC SER RENDERED TO PATS IN A GRP SETTING (EG,,OBESITY,OR DIABETIC INSTRUCT) 09/18/19 [facility] Social History Combined list of available smoking, tobacco, and other social history from Department of Defense and Veterans Affairs facilities. Social History Type Response Date Comment Sour e Tobacco smoking status NHIS VA-TOBACCO NEVER USED 12/01/2022 [facility] History of tobacco use VA-TOBACCO NEVER USED 12/20/2021 [facility] History of tobacco use VA-TOBACCO NEVER USED 09/09/2020 [facility] History of tobacco use VA-TOBACCO NEVER USED 08/19/2019 [facility] History of tobacco use VA-TOBACCO NEVER USED 10/02/2017 [facility] History of tobacco use LIFETIME NON-USER OF TOBACCO 02/24/2016 [facility] History of tobacco use LIFETIME NON-USER OF TOBACCO 01/14/2015 [facility] History of tobacco use LIFETIME NON-USER OF TOBACCO 05/17/2006 [facility] History of tobacco use 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 [facility] Plan of Care List of future care activities from Department of Veterans Affairs facilities. Additional future care activities may be listed in the Assessment and Plan section. Date/Time Care Activity Care Activity Detail Facili ty 08/14/2024 AMBULATORY - NONE AMBULATORY - NONE [facility] Advance Directives List of completed, amended, or rescinded Advance Directives on record at Department of Veterans Affairs facilities. An actual copy of the Directive is not included. Date Advance Directive Provider Source 07/25/2024 ADVANCE DIRECTIVE NOA LYON [facility] 09/28/2005 ADVANCE DIRECTIVE CRUZITO OLMSTEAD [facility]
[2024-08-14 10:25] VITALS: BP 126/66; PULSE 65; RESP 18; TEMP 36.5; O2SAT 96; BMI 36.3
[2024-08-14 10:59] LABS: Mean Platelet Volume 10.5 fl (7.4-10.4); Platelet Count Result 185 k/mm3 (150-375)
[2024-08-14 11:10] LABS: INR 0.9; Prothrombin Time 12.5 Seconds (11.1-14.7)
[2024-08-14 13:45] VITALS: BP 122/69; PULSE 69; RESP 18
[2024-08-14 14:15] VITALS: BP 127/74; PULSE 68; RESP 18
[2024-08-14 14:45] VITALS: BP 122/57; PULSE 67; RESP 16
[2024-08-14 15:15] VITALS: BP 113/63; PULSE 76; RESP 16
[2024-08-14 15:42] LABS: HIV 1/2 Ab P24 Ag Result Negative (Negative); Hepatitis B Surface Antigen Negative (Negative); Hepatitis C Virus Antibody Negative (Negative)
== END 2024-08-14 15:51 | disposition home or self-care (01) ==
PROVIDERS: Visit Provider Radiology Diagnostic Radiology
DX: G95.0 Syringomyelia and syringobulbia (principal); M51.26 Other intervertebral disc displacement, lumbar region; G96.191 Perineural cyst; M47.814 Spondylosis without myelopathy or radiculopathy, thoracic region; M47.816 Spondylosis without myelopathy or radiculopathy, lumbar region; M48.061 Spinal stenosis, lumbar region without neurogenic claudication
CPT/HCPCS: 36415; 62305; 72129; 72132; 85049; 85610; 86703; 86803; 87340; G0432